=== PATIENT | male | born 1995 | race Caucasian/White ===

== ENCOUNTER 2021-02-19 08:00 | Outpatient (CLI) | payer OTHER | END 2021-02-19 23:59 | LOC: LAB 08:00 | PROVIDERS: ATTEND Physician Assistant | DX: U07.1 COVID-19 (principal) ==

== ENCOUNTER 2022-05-23 22:21 | Emergency (ER) | payer OTHER ==
--- NOTE | 2022-05-23 23:43 | ED Physician Documentation ---
PD HPI CHEST PAIN - Stated complaint Stated Complaint: SOA - Chief complaint Chief Complaint: General - History obtained from History obtained from: Patient, Family - History of Present Illness Timing - onset: How many weeks ago (2) Timing - onset during: Light activity Timing - duration: Weeks (2) Timing - details: Abrupt onset, Still present, Waxing and waning Quality: Sharp, Pain Location: Substernal Improved by: Rest Worsened by: Exertion Associated symptoms: No: Shortness of air, Diaphoresis, Nausea, Vomiting, Feeling faint / dizzy, General Weakness, Palpitations, Cough Similar symptoms before: Has not had sx before Recently seen: Clinic - Additional information Additional information: Miles 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 He reports that prior to returning from deployment he was doing a 5K run and he believes he overdid it. He indicates he was trying really hard. He indicates he would did do a energy drink during the 5K and felt some chest discomfort associated with this and took quite a while for his heart rate to return to normal. Since that time he has not been back to active physical activity. He has come home on a long flight he had to 7-hour stents and one 8-hour stent. He denies exertional dyspnea. He indicates he may have some difficulty with his stomach as this has been an issue previously and he wonders if that might not be what he is experiencing with some discomfort in his chest. Review of Systems Constitutional: denies: Fever Eyes: denies: Decreased vision Ears: denies: Ear pain Nose: denies: Rhinorrhea / runny nose, Congestion Throat: denies: Sore throat Cardiac: reports: Chest pain / pressure. denies: Palpitations, Pedal edema, Calf pain Respiratory: denies: Dyspnea, Cough GI: denies: Abdominal Pain, Nausea, Vomiting, Constipation, Diarrhea : denies: Dysuria, Frequency Skin: denies: Rash Musculoskeletal: denies: Neck pain, Back pain, Extremity pain PD PAST MEDICAL HISTORY - Present Medications Home Medications: Ambulatory Orders Medication Instructions Recorded Confirmed No Known Home Medications 05/23/22 05/23/22 - Allergies Allergies/Adverse Reactions: Allergies Allergy/AdvReac Type Severity Reaction Status Date / Time No Known Drug Allergies Allergy Verified 05/23/22 23:01 PD ED PE NORMAL - Vitals Vital signs reviewed: Yes (Hypertension with wide pulse pressure mild) - General General: Alert and oriented X 3, No acute distress, Well developed/nourished - HEENT HEENT: Atraumatic, PERRL, EOMI - Neck Neck: Supple, no meningeal sign, No bony TTP - Cardiac Cardiac: RRR, No murmur - Respiratory Respiratory: No respiratory distress, Clear bilaterally - Abdomen Abdomen: Normal bowel sounds, Soft, Non tender, Non distended, No organomegaly - Back Back: No CVA TTP, No spinal TTP - Derm Derm: Normal color, Warm and dry, No rash - Extremities Extremities: No deformity, No edema - Neuro Neuro: Alert and oriented X 3, watch guard gate 2-12 intact, No motor deficit, No sensory deficit, Normal speech Eye Opening: Spontaneous Motor: Obeys Commands Verbal: Oriented GCS Score: 15 - Psych Psych: Normal mood, Normal affect Results - Vitals Vitals: Vital Signs - 24 hr 05/23/22 05/23/22 05/24/22 22:41 23:27 00:25 Temperature 36.6 C Heart Rate 51 L 84 60 Respiratory 17 13 20 Rate Blood Pressure 132/52 H 149/80 H 132/50 H O2 Saturation 100 100 100 05/24/22 01:28 Temperature 36.9 C Heart Rate 62 Respiratory 16 Rate Blood Pressure 143/65 H O2 Saturation 96 Oxygen O2 Source Room air - EKG (time done) 2253 EKG releavant findings:: EKG personally interpreted by author of this note. Relevant findings are: Rate: Rate (enter#) (63) Ischemia: ST elevation c/w repol Compare to prior EKG: Old EKG unavailable Computer interpretation: Agree with computer - Labs Labs: Laboratory Tests 05/23/22 05/23/22 05/23/22 23:42 23:42 23:42 WBC 5.9 RBC 4.93 Hgb 15.3 Hct 45.8 MCV 92.9 MCH 31.0 MCHC 33.4 RDW 11.9 L Plt Count 243 MPV 9.8 Neut # (Auto) 3.0 Lymph # (Auto) 2.3 Perry # (Auto) 0.5 Eos # (Auto) 0.1 Baso # (Auto) 0.0 Absolute Nucleated RBC 0.00 Nucleated RBC % 0.0 D-Dimer Sodium 138 Potassium 3.8 Chloride 102 Carbon Dioxide 29 Anion Gap 7.0 BUN 19 Creatinine 0.8 Estimated GFR (MDRD) 115 Glucose 100 Calcium 9.7 Total Bilirubin 0.4 AST 16 ALT 16 Alkaline Phosphatase 62 Troponin I High Sens 2.5 Total Protein 6.9 Albumin 4.6 Globulin 2.3 Albumin/Globulin Ratio 2.0 Lipase 37 05/23/22 23:42 WBC RBC Hgb Hct MCV MCH MCHC RDW Plt Count MPV Neut # (Auto) Lymph # (Auto) Perry # (Auto) Eos # (Auto) Baso # (Auto) Absolute Nucleated RBC Nucleated RBC % D-Dimer < 200.0 L Sodium Potassium Chloride Carbon Dioxide Anion Gap BUN Creatinine Estimated GFR (MDRD) Glucose Calcium Total Bilirubin AST ALT Alkaline Phosphatase Troponin I High Sens Total Protein Albumin Globulin Albumin/Globulin Ratio Lipase - Rads (name of study) Chest Relevant Findings:: Prelim report reviewed (Impression: 1. No acute cardiopulmonary disease.), EMP independent interpretation of test PD Medical Decision Making - ED course Complexity details: considered differential, d/w patient, d/w family Reviewed Lab Results: We reviewed a complete blood count which was entirely normal as well as a chemistry panel including electrolytes kidney and liver function all again normal. We obtained a troponin and D-dimer and this was negative as well. We found no evidence to suggest that the patient had abnormality based on blood work we obtained. I personally reviewed the patient's chest x-ray found no evidence of disease and confirmed this with the radiologist report. 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 I found no evidence on evaluation to suggest coronary syndrome, pulmonary embolism, aortic dissection, hiatal hernia, pneumonia or lung disease. I suspect the patient may have an asymptomatic viral syndrome and these were not tested for as they would not change our management. Departure - Departure Disposition: 01 Home, Self Care Clinical Impression: Atypical chest pain Condition: Stable Instructions: ED Chest Pain Atypical Unkn Cause Follow-Up: JULIETTE Germain [Provider Group] Comments: Miles, today we did some screening blood work which was all normal and we did not find evidence of a problem with your lungs on the plain film we did. We did do screening for damage to your heart we found none and we did do screening for blood clots and found no evidence to suggest there are blood clots. Your chemistries with electrolytes kidney and liver function are all normal. Your blood counts are normal. I suspect you may have a viral syndrome and the expectation with this is resolution within a week.
[2022-05-23 23:53] LABS: BASOPHILS % (AUTO) 0.7 %; EOSINOPHILS # (AUTO) 0.1 10^3/uL (0.0-0.7); EOSINOPHILS % (AUTO) 1.5 %; HCT - HEMATOCRIT 45.8 % (42.0-52.0); HGB - HEMOGLOBIN 15.3 g/dL (14.0-18.0); LYMPHOCYTES # (AUTO) 2.3 10^3/uL (1.5-3.5); MEAN CORPUSCULAR HGB CONC 33.4 g/dL (32.0-36.0); MEAN CORPUSCULAR VOLUME 92.9 fL (80.0-94.0); MEAN PLATELET VOLUME 9.8 fL (7.4-11.4); MONOCYTES # (AUTO) 0.5 10^3/uL (0.0-1.0); NEUTROPHILS % (AUTO) 50.5 %; PLT - PLATELET COUNT 243 10^3/uL (130-450); RED BLOOD COUNT 4.93 10^6/uL (4.70-6.10); RED CELL DISTRIBUTION WIDTH 11.9 % (12.0-15.0); WHITE BLOOD COUNT 5.9 x10^3/uL (4.8-10.8)
[2022-05-24 00:14] LABS: ALBUMIN 4.6 g/dL (3.2-5.5); BILIRUBIN,TOTAL 0.4 mg/dL (0.2-1.0); CALCIUM 9.7 mg/dL (8.5-10.3); CREATININE 0.8 mg/dL (0.6-1.2); POTASSIUM 3.8 mmol/L (3.5-5.0); TOTAL PROTEIN 6.9 g/dL (6.7-8.2)
[2022-05-24 01:30] VITALS: BP 143/65
--- NOTE | 2022-05-24 07:08 | XRAY Report ---
PROCEDURE: Chest 1 View X-Ray INDICATIONS: chest pain TECHNIQUE: One view of the chest was acquired. COMPARISON: None. FINDINGS: Surgical changes and devices: None. Lungs and pleura: No pleural effusions or pneumothorax. Lungs are clear. Mediastinum: Mediastinal contours appear normal. Heart size is normal. Bones and chest wall: No suspicious bony lesions. Overlying soft tissues appear unremarkable. IMPRESSION: 1. No acute cardiopulmonary disease. Reviewed by: Pranay Beck MD on 05/24/2022 12:57 AM PDT Approved by: Pranay Beck MD on 05/24/2022 12:57 AM PDT Station ID: [id number]
== END 2022-05-24 01:39 | disposition home or self-care (01) ==
LOC: ED 22:21
DX: R07.89 Other chest pain (principal)
CPT/HCPCS: 36415; 80053; 83690; 84484; 85025; 85379; 93005; 99283; 99284